=== PATIENT | female | born 1985 | race Caucasian/White ===

== ENCOUNTER 2018-06-28 17:57 | Inpatient (IN) | payer BC ==
[2018-06-28] MEDS ORDERED: Oxytocin/Lactated Ringers 10 UNIT/1,000 ML BAG IV SCH (18:15)
[2018-06-28] MEDS ORDERED: Nalbuphine 20 MG/ML 1 ML Syringe IVPUSH PRN (18:15)
[2018-06-28] MEDS ORDERED: Ondansetron 4 MG/2 ML SDV IVPUSH PRN (18:15)
[2018-06-28] MEDS ORDERED: Sodium Chloride 0.9% 10 ML Syringe FLUSH PRN (18:15)
[2018-06-28] MEDS ORDERED: Ampicillin 2 GM in Sodium Chloride 0.9% 100 ML IV ONE (18:30)
[2018-06-28] MEDS: Lactated Ringers 1,000 ML IV SCH ×3 (18:31→19:53)
[2018-06-28] MEDS ORDERED: fentaNYL 100 MCG/2 ML SDV EPIDUR PRN (19:14)
[2018-06-28] MEDS ORDERED: ePHEDrine 50 MG/ML SDV IVPUSH PRN (19:14)
[2018-06-28] MEDS ORDERED: diphenhydrAMINE 50 MG/ML SDV IVPUSH PRN (19:14)
[2018-06-28] MEDS ORDERED: Bupivacaine/fentaNYL/NS 100 ML Bag EPIDUR SCH (19:15)
--- NOTE | 2018-06-28 19:36 | PCM.LDHP ---
L&D History of Present Illness - General Date of Service: 06/28/18 Admit Problem/Dx: Patient Status Order with Admit Dx/Problem 06/28/18 18:15 Patient Status [ADT] Routine Admission Diagnosis/Problem Admission Diagnosis/Problem Source of Information: Patient History Limitations: Reports: No Limitations - History of Present Illness Introduction:: Sapna Torres is a 33-year-old 012 at 40 weeks 2 days by LMP consistent with 9 week ultrasound (EDC 06/26/2018 end (who presents for spontaneous labor. She reports around 3:30 to 4:00 this afternoon she started to have regular painful contractions that were about 5-6 minutes apart. She reports that they're getting very strong and having to breathe through them. She denies any leaking of fluid or vaginal bleeding. Reports good movement. Timing/Duration: Reports: gradual onset, intermittent (5-6 minutes), getting worse Location, : Reports: Abdomen, Lower back, Pelvic, Uterus Quality: Reports: Pressure, Throbbing Severity: Severe Improves with: Reports: None Worsens with: Reports: None Associated Symptoms: Denies: vaginal bleeding, vaginal discharge, vaginal fluid Present Illness Comments:: Sapna Torres is a 33-year-old 012 at 40 weeks 2 days by LMP consistent with 9 week ultrasound (EDC 06/26/2018) who presents in spontaneous labor. She has had routine care with myself starting at 9 weeks gestational age. She received flu shot on 02/19/2018. She received TDaP on 04/16/2018. labs Blood type: O+ Antibody screen: Negative First trimester hematocrit/hemoglobin: 38.3%/13.7 on 01/08/2018 Platelets: 213 on 01/08/2018 Urine culture: Mixed amy suggestive contamination Rubella status: Immune Hepatitis B surface antigen: [Negative] RPR: [Negative] HIV: [Negative] Gonorrhea: [Negative] Chlamydia: [Negative] Anatomy ultrasound: Normal anatomy ultrasound without abnormalities. Posterior placenta, no previa. 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 1 oz., delivery at 40 weeks' gestational age G2: 09/29/2014 spontaneous at early gestational age G3: 08/09/2015, , male, 8 lbs. 3 oz., delivery at 40 weeks' gestational age G4: Current - Related Data Allergies/Adverse Reactions: Allergies Allergy/AdvReac Type Severity Reaction Status Date / Time No Known Allergies Allergy Verified 06/28/18 18:08 Home Medications: Home Meds Vits #93/Iron Fum/FA [ Formula Tablet] 06/28/18 [History] Past Medical History HEENT History: Reports: Other (See Below) Other HEENT History: wears glasses/contacts Genitourinary History: Reports: Other (See Below) Other Genitourinary History: history of abnormal pap 2008 LEADITE MAN History: Reports: , Spontaneous : 4 Para: 2 - Past Surgical History HEENT Surgical History: Reports: Oral Surgery Social & Family History - Tobacco Use Smoking Status *Q: Never Smoker - Tobacco Core Measures Tobacco Use/Smoking Within Last 30 Days: No Smokeless Tobacco Use in Last 30 Days: No - Alcohol Use Alcohol Use History: No - Recreational Drug Use Recreational Drug Use: No - Living Situation & Occupation Living situation: Reports: , with Spouse H&P Review of Systems - Review of Systems: Review Of Systems: See Below General: Denies: Fever, Chills, Malaise, Weakness, Fatigue HEENT: Reports: Glasses. Denies: Headaches, Rhinitis, Post Nasal Drip, Sinus Congestion, Sore Throat, Visual Changes Pulmonary: Denies: Shortness of Breath, Wheezing, Pleuritic Chest Pain Cardiovascular: Denies: Chest Pain, Palpitations, Dyspnea on Exertion Gastrointestinal: Denies: Abdominal Pain, Constipation, Diarrhea, Nausea, Vomiting Genitourinary: Denies: Dysuria, Frequency, Burning, Pain, Urgency Musculoskeletal: Reports: Back Pain (And hip pain) Skin: Denies: Rash, Lesions Psychiatric: Denies: Depression, Anxiety Hematologic/Lymphatic: Denies: Anemia, Easy Bleeding, Easy Bruising L&D Exam - Exam Exam: See Below - Vital Signs Vital Signs: Last Vital Signs Temp 36.3 C 06/28/18 18:07 Pulse 68 06/28/18 18:07 Resp 18 06/28/18 18:07 BP 125/72 06/28/18 18:07 Pulse Ox Weight: 102.194 kg - OB Specific Contraction Duration (sec): 60-90 Contraction Frequency (min): 2-5 Contraction Intensity: Strong Movement: Active Heart Tones: Present Heart Tones per Min: 130 (+15 x 15 accelerations, occasional variable decelerations) Heart Rate (FHR) Variability: Moderate (6-25 bmp) Presentation: Vertex Estimated Weight: 7.5-8 pounds by Riley's - Rose Score Rose Score Cervix Position: Anterior Rose Score Consistency: Soft Rose Score Effacement: >80% (90%) Rose Score Dilation: 3-4 cm (4 cm) Rose Score 's Station: -2 Rose Score Total: 10 - Exam General: Alert, Oriented HEENT: Conjunctiva Clear, EOMI Neck: Supple, Trachea Midline Lungs: Clear to Auscultation, Normal Respiratory Effort Cardiovascular: Regular Rate, Regular Rhythm GI/Abdominal Exam: Soft, Non-Tender, No Distention. No: Guarding, Rigid, Rebound Genitourinary: Normal external exam Back Exam: Normal Inspection Extremities: Normal Inspection, No Pedal Edema Skin: Warm, Dry, Intact Psychiatric: Alert, Normal Affect, Normal Mood - Patient Data Lab Results Last 24 hrs: Laboratory Results - last 24 hr 06/28/18 Range/Units 18:39 WBC 13.14 H (3.98-10.04) K/mm3 RBC 4.29 (3.98-5.22) M/mm3 Hgb 13.2 (11.2-15.7) gm/L Hct 38.0 (34.1-44.9) % MCV 88.6 (79.4-94.8) fl MCH 30.8 (25.6-32.2) pg MCHC 34.7 (32.2-35.5) g/dl RDW Std Deviation 41.0 (36.4-46.3) fL Plt Count 172 L (182-369) K/mm3 MPV 9.4 (9.4-12.3) fl Neut % (Auto) 76.5 H (34.0-71.1) % Lymph % (Auto) 13.2 L (19.3-51.7) % [place] % (Auto) 7.6 (4.7-12.5) % Eos % (Auto) 1.8 (0.7-5.8) Baso % (Auto) 0.2 (0.1-1.2) % Neut # (Auto) 10.06 H (1.56-6.13) K/mm3 Lymph # (Auto) 1.73 (1.18-3.74) K/mm3 Davis # (Auto) 1.00 H (0.24-0.36) K/mm3 Eos # (Auto) 0.23 (0.04-0.36) K/mm3 Baso # (Auto) 0.03 (0.01-0.08) K/mm3 Result Diagrams: 06/28/18 18:39 - Problem List (1) 40 weeks gestation of SNOMED Code(s): 82819326 ICD Code: Z3A.40 - 40 WEEKS GESTATION OF Status: Acute Current Visit: Yes (2) GBS (group B Streptococcus carrier), +RV culture, currently SNOMED Code(s): 5862514927908, 347970944, 2314399554799 ICD Code: O99.820 - STREPTOCOCCUS B CARRIER STATE COMPLICATING Status: Acute Current Visit: Yes Problem List Initiated/Reviewed/Updated: Yes Orders Last 24hrs: Active Orders 24 hr Category Date Time Status Patient Status [ADT] Routine ADT 06/28/18 18:15 Active Activity as Tolerated [RC] PFP Care 06/28/18 18:15 Active Communication Order [RC] ASDIRECTED Care 06/28/18 18:15 Active Heart Tones [RC] ASDIRECTED Care 06/28/18 18:16 Active Non Stress Test [RC] PER UNIT ROUTINE Care 06/28/18 18:15 Active Notify Provider [RC] ASDIRECTED Care 06/28/18 19:14 Active Notify Provider [RC] PFP Care 06/28/18 18:15 Active Notify Provider [RC] PRN Care 06/28/18 18:15 Active Peripheral IV Care [RC] . DIRECTED Care 06/28/18 18:16 Active Vital Signs [RC] PER UNIT ROUTINE Care 06/28/18 18:15 Active RAPID PLASMA REAGIN,RPR [CHEM] Routine Lab 06/28/18 18:15 Ordered Ampicillin 1 gm Med 06/28/18 22:30 Active Sodium Chloride 0.9% [Normal Saline] 100 ml IV Q4H Bupivacaine/fentaNYL/NS [fentaNYL/Bupivacaine/NS 2 MCG- Med 06/28/18 19:15 Ordered 0.125% 100 ML] 100 ml EPIDUR ASDIRECTED Lactated Ringers [Ringers, Lactated] 1,000 ml Med 06/28/18 18:15 Active IV ASDIRECTED Nalbuphine [Nubain] Med 06/28/18 18:15 Active 10 mg IVPUSH Q2H PRN Ondansetron [Zofran] Med 06/28/18 18:15 Active 4 mg IVPUSH Q4H PRN Oxytocin/Lactated Ringers [Pitocin in LR 10 Units/1,000 Med 06/28/18 18:15 Active ML] 10 unit in 1,000 ml IV .CONTINUOUS Sodium Chloride 0.9% [Saline Flush] Med 06/28/18 18:15 Active 10 ml FLUSH ASDIRECTED PRN diphenhydrAMINE [Benadryl] Med 06/28/18 19:14 Ordered 25 mg IVPUSH Q6H PRN ePHEDrine [ePHEDrine sulfate] Med 06/28/18 19:14 Ordered 5 mg IVPUSH ASDIRECTED PRN fentaNYL [Sublimaze] Med 06/28/18 19:14 Ordered 100 mcg EPIDUR Q3H PRN Electronic Heart Tones Ext w TOCO [WOMSER] Oth 06/28/18 18:15 Ordered Routine Electronic Heart Tones Internal [WOMSER] Per Unit Oth 06/28/18 18:15 Ordered Routine Peripheral IV Insertion Adult [OM.PC] Routine Oth 06/28/18 18:15 Ordered Resuscitation Status Routine Resus Stat 06/28/18 18:15 Ordered Medication Orders Diphenhydramine HCl (Benadryl) 25 mg IVPUSH Q6H PRN PRN Reason: pruritis Ephedrine Sulfate (Ephedrine Sulfate) 5 mg IVPUSH ASDIRECTED PRN PRN Reason: Hypotension Fentanyl (Sublimaze) 100 mcg EPIDUR Q3H PRN PRN Reason: Pain Fentanyl/Bupivacaine HCl (Fentanyl/Bupivacaine/Ns 2 Mcg-0.125% 100 Ml) 100 ml EPIDUR ASDIRECTED [facility]SEIN Ampicillin Sodium 1 gm/ Sodium (Chloride) 100 mls @ 200 mls/hr IV Q4H [facility] Lactated Ringer's (Ringers, Lactated) 1,000 mls @ 100 mls/hr IV ASDIRECTED HUSSEIN Last Admin: 06/28/18 19:15 Dose: 999 mls/hr Infusion: 06/28/18 19:15 Dose: 100 mls/hr Admin: 06/28/18 18:31 Dose: 100 mls/hr Oxytocin/Lactated Ringer's (Pitocin In Lr 10 Units/1,000 Ml) 10 unit in 1,000 mls @ 500 mls/hr IV .CONTINUOUS [facility]USSEIN Nalbuphine HCl (Nubain) 10 mg IVPUSH Q2H PRN PRN Reason: pain Ondansetron HCl (Zofran) 4 mg IVPUSH Q4H PRN PRN Reason: Nausea/Vomiting Sodium Chloride (Saline Flush) 10 ml FLUSH ASDIRECTED PRN PRN Reason: Keep Vein Open Assessment/Plan Comment:: Refer to observation for spontaneous labor with cervical change from 3.5 cm yesterday to 4 cm today Continuous monitoring Place IV and have Lactated Ringer's at 125 ml/hr May have small amounts of regular diet Activity as tolerated May have epidural as desired Plans to breast-feed after delivery Start on ampicillin 2 g now and have 1 g every 4 hours after for GBS prophylaxis Plan for artificial rupture membranes 4 hours after first dose of antibiotic Anticipate vaginal delivery unless otherwise indicated Momo Kolb M.D. 7:42 PM 06/28/2018
[2018-06-28] MEDS ORDERED: fentaNYL/Bupivacaine-NS 2 MCG/ML-0.125%/PF 100 ML Bag EP SCH (19:37)
--- NOTE | 2018-06-28 19:47 | PCM.PREANE ---
Preanesthetic Assessment - Procedure Proposed Procedure: elizabeth - Anesthesia/Transfusion/Family Hx Anesthesia History: Prior Anesthesia Without Reaction Family History of Anesthesia Reaction: No Transfusion History: No Prior Transfusion(s) - Review of Systems General: No Symptoms Pulmonary: No Symptoms Cardiovascular: No Symptoms Gastrointestinal: No Symptoms, Diarrhea (today) Neurological: No Symptoms - Physical Assessment Respiratory Rate: 18 Vital Signs: Last Vital Signs Temp 97.4 F 06/28/18 18:07 Pulse 68 06/28/18 18:07 Resp 18 06/28/18 18:07 BP 125/72 06/28/18 18:07 Pulse Ox Height: 5 ft 8 in Weight: 102.194 kg ASA Class: 2 Mental Status: Alert & Oriented x3 Airway Class: Mallampati = 1 Dentition: Reports: Normal Dentition Thyro-Mental Finger Breadths: 3 Mouth Opening Finger Breadths: 3 ROM/Head Extension: Full Lungs: Clear to Auscultation, Normal Respiratory Effort Cardiovascular: Regular Rate, Regular Rhythm - Lab Values: Laboratory Last Values WBC 13.14 K/mm3 (3.98-10.04) H 06/28/18 18:39 RBC 4.29 M/mm3 (3.98-5.22) 06/28/18 18:39 Hgb 13.2 gm/L (11.2-15.7) 06/28/18 18:39 Hct 38.0 % (34.1-44.9) 06/28/18 18:39 MCV 88.6 fl (79.4-94.8) 06/28/18 18:39 MCH 30.8 pg (25.6-32.2) 06/28/18 18:39 MCHC 34.7 g/dl (32.2-35.5) 06/28/18 18:39 RDW Std Deviation 41.0 fL (36.4-46.3) 06/28/18 18:39 Plt Count 172 K/mm3 (182-369) L 06/28/18 18:39 MPV 9.4 fl (9.4-12.3) 06/28/18 18:39 Neut % (Auto) 76.5 % (34.0-71.1) H 06/28/18 18:39 Lymph % (Auto) 13.2 % (19.3-51.7) L 02/28/19 18:39 [place] % (Auto) 7.6 % (4.7-12.5) 06/28/18 18:39 Eos % (Auto) 1.8 (0.7-5.8) 06/28/18 18:39 Baso % (Auto) 0.2 % (0.1-1.2) 06/28/18 18:39 Neut # (Auto) 10.06 K/mm3 (1.56-6.13) H 06/28/18 18:39 Lymph # (Auto) 1.73 K/mm3 (1.18-3.74) 06/28/18 18:39 [place] # (Auto) 1.00 K/mm3 (0.24-0.36) H 06/28/18 18:39 Eos # (Auto) 0.23 K/mm3 (0.04-0.36) 06/28/18 18:39 Baso # (Auto) 0.03 K/mm3 (0.01-0.08) 06/28/18 18:39 - Allergies Allergies/Adverse Reactions: Allergies Allergy/AdvReac Type Severity Reaction Status Date / Time No Known Allergies Allergy Verified 06/28/18 18:08 - Blood Blood Available: No - Acknowledgements Anesthesia Type Planned: Epidural Pt an Appropriate Candidate for the Planned Anesthesia: Yes Alternatives and Risks of Anesthesia Discussed w Pt/Guardian: Yes Pt/Guardian Understands and Agrees with Anesthesia Plan: Yes PreAnesthesia Questionnaire HEENT History: Reports: Other (See Below) Other HEENT History: wears glasses/contacts Cardiovascular History: Reports: None Respiratory History: Reports: None Gastrointestinal History: Reports: GERD (with preg) Genitourinary History: Reports: Other (See Below) Other Genitourinary History: history of abnormal pap 2008 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: , Spontaneous : 4 Para: 2 - Past Surgical History HEENT Surgical History: Reports: Oral Surgery Female Surgical History: Reports: Other (See Below) (cyst removed from inside vaginal wall) - SUBSTANCE USE Smoking Status *Q: Never Smoker Tobacco Use Within Last Twelve Months: No Second Hand Smoke Exposure: No Days Per Week of Alcohol Use: 0 Recreational Drug Use History: No - HOME MEDS Home Medications: Home Meds Vits #93/Iron Fum/FA [ Formula Tablet] 02/28/19 [History] - CURRENT (IN HOUSE) MEDS Current Meds: Current Medications Diphenhydramine HCl (Benadryl) 25 mg IVPUSH Q6H PRN PRN Reason: pruritis Ephedrine Sulfate (Ephedrine Sulfate) 5 mg IVPUSH ASDIRECTED PRN PRN Reason: Hypotension Fentanyl (Sublimaze) 100 mcg EPIDUR Q3H PRN PRN Reason: Pain Last Admin: 06/28/18 19:42 Dose: 100 mcg Fentanyl/Bupivacaine HCl (Pgknariv-Kvmig-Vu 2 Mcg/Ml-0.125%) 100 ml EP ASDIRECTED HUSSEIN Last Admin: 06/28/18 19:44 Dose: 100 ml Ampicillin Sodium 1 gm/ Sodium (Chloride) 100 mls @ 200 mls/hr IV Q4H [facility] Lactated Ringer's (Ringers, Lactated) 1,000 mls @ 100 mls/hr IV ASDIRECTED [facility]USSEIN Last Admin: 06/28/18 19:15 Dose: 999 mls/hr Oxytocin/Lactated Ringer's (Pitocin In Lr 10 Units/1,000 Ml) 10 unit in 1,000 mls @ 500 mls/hr IV .CONTINUOUS [facility]USSEIN Nalbuphine HCl (Nubain) 10 mg IVPUSH Q2H PRN PRN Reason: pain Ondansetron HCl (Zofran) 4 mg IVPUSH Q4H PRN PRN Reason: Nausea/Vomiting Sodium Chloride (Saline Flush) 10 ml FLUSH ASDIRECTED PRN PRN Reason: Keep Vein Open Discontinued Medications Fentanyl/Bupivacaine HCl (Fentanyl/Bupivacaine/Ns 2 Mcg-0.125% 100 Ml) 100 ml EPIDUR ASDIRECTED [facility]USSEIN Ampicillin Sodium 2 gm/ Sodium (Chloride) 100 mls @ 200 mls/hr IV ONETIME ONE Stop: 06/28/18 18:59 Last Admin: 06/28/18 18:31 Dose: 200 mls/hr
[2018-06-28] MEDS ORDERED: Bupivacaine 0.25% 10 ML SDV ONE (22:00)
[2018-06-28] MEDS ORDERED: Lidocaine 1.5% with EPINEPHrine 1:200,000 5 ML Amp ONE (22:00)
[2018-06-28] MEDS ORDERED: Ampicillin 1 GM in Sodium Chloride 0.9% 100 ML IV SCH (22:30)
--- NOTE | 2018-06-28 23:22 | PCM.PNLD ---
Labor Progress Note - VS & Meds Vital Signs: Last Vital Signs Temp 36.3 C 06/28/18 18:07 Pulse 68 06/28/18 18:07 Resp 18 06/28/18 19:47 BP 125/72 06/28/18 18:07 Pulse Ox Active Medications: Current Medications Diphenhydramine HCl (Benadryl) 25 mg IVPUSH Q6H PRN PRN Reason: pruritis Ephedrine Sulfate (Ephedrine Sulfate) 5 mg IVPUSH ASDIRECTED PRN PRN Reason: Hypotension Fentanyl (Sublimaze) 100 mcg EPIDUR Q3H PRN PRN Reason: Pain Last Admin: 06/28/18 19:42 Dose: 100 mcg Fentanyl/Bupivacaine HCl (Atmauibd-Amsek-Wb 2 Mcg/Ml-0.125%) 100 ml EP ASDIRECTED HUSSEIN Last Admin: 06/28/18 19:44 Dose: 100 ml Ampicillin Sodium 1 gm/ Sodium (Chloride) 100 mls @ 200 mls/hr IV Q4H [facility] Last Admin: 06/28/18 22:22 Dose: 200 mls/hr Lactated Ringer's (Ringers, Lactated) 1,000 mls @ 100 mls/hr IV ASDIRECTED [facility] Last Admin: 06/28/18 19:53 Dose: 999 mls/hr Oxytocin/Lactated Ringer's (Pitocin In Lr 10 Units/1,000 Ml) 10 unit in 1,000 mls @ 500 mls/hr IV .CONTINUOUS [facility] Nalbuphine HCl (Nubain) 10 mg IVPUSH Q2H PRN PRN Reason: pain Ondansetron HCl (Zofran) 4 mg IVPUSH Q4H PRN PRN Reason: Nausea/Vomiting Last Admin: 06/28/18 22:27 Dose: 4 mg Sodium Chloride (Saline Flush) 10 ml FLUSH ASDIRECTED PRN PRN Reason: Keep Vein Open Discontinued Medications Fentanyl/Bupivacaine HCl (Fentanyl/Bupivacaine/Ns 2 Mcg-0.125% 100 Ml) 100 ml EPIDUR ASDIRECTED [facility] Ampicillin Sodium 2 gm/ Sodium (Chloride) 100 mls @ 200 mls/hr IV ONETIME ONE Stop: 06/28/18 18:59 Last Admin: 06/28/18 18:31 Dose: 200 mls/hr - Uterine Contractions Uterine Monitoring Mode: External Hurt Contraction Frequency (min): 2-5 Contraction Duration (sec): 60-90 Contraction Intensity: Strong - Monitoring Monitor Mode: Doppler/Auscultation Heart Rate (FHR) Baseline: 125 Heart Rate (FHR) Per Doppler: 125 Heart Rate (FHR) Variability: Moderate (6-25 bmp) Accelerations: Present, 15x15 Decelerations: Early, Intermittent (<50% x 20 min) Strip Review: Category I - Vaginal Exam Dilation (cm): 9 Effacement (Percent): 100 Station: 1 Cervical Position: Anterior Sterile Vaginal Exam Performed By: Momo Kolb Vaginal Exam Comment: Artificial rupture of membranes performed with [place] with return of clear fluid. Mother and baby tolerated procedure without difficulty. - Labor Progress (Free Text) Labor Progress: Patient with epidural in place. Good progression at this time with cervical exam of 9/100/+1/soft/anterior Artificial rupture membranes with clear fluid Anticipate vaginal delivery unless otherwise indicated Momo Kobl M.D. 11:22 PM 06/28/2018
--- NOTE | 2018-06-29 00:06 | PCM.DEL ---
L & D Note - General Info Date of Service: 06/28/18 Mother's Due Date: 06/26/18 - Delivery Note Labor: Spontaneous Delivery Outcome: Livebirth Infant Delivery Method: Spontaneous Vaginal Delivery-Single Presentation: Left Occiput Anterior (MISHEL) Nuchal Cord: None Prep: Povidone-Iodine (Betadine Anesthesia Type: Epidural Amniotic Fluid Description: Clear Episiotomy Type: None Laceration: 1st Degree, Labial (bilateral, hemostatic, not repaired) Placenta: Intact, Spontaneous Cord: 3 Vessels Estimated Blood Loss: 150 [place]: Bulb Syringe, Stimulated, Warmed, [place] Used Provider: Momo Kolb Score 1 min: 9 Score 5 min: 9 Delivery Comments (Free Text/Narrative):: Stage I: Sapna Torres was admitted for spontaneous labor. On admission her cervix was dilated to 4 cm. She was GBS positive and was started on ampicillin for GBS prophylaxis. She received a total of 2 doses prior to delivery. She was given an epidural for anesthesia. She had artificial rupture membranes with clear fluid when she was 9 cm dilated. She progressed to complete and pushing. Stage II: On 06/28/2018 she had a normal vaginal delivery of a live male at 2343. Apgars of 9 & 9. Weight of 3950 g (8 lbs 11 oz). Length of 21 inches. There was no nuchal cord. Infant was delivered in MISHEL position. The cord was doubly clamped and cut by father of the . Infant was placed on mother's abdomen. Stage III: She had a spontaneous delivery of an intact placenta in Ed presentation. Three vessel cord. She was given pitocin and fundal massage. She had bilateral first-degree labial lacerations that were hemostatic and not repaired. Mom and baby were stable to recovery. EBL of 150 mL. Momo Kolb MD 12:04 AM 06/29/2018 - General Info Date of Service: 06/29/18 - Patient Data Vitals - Most Recent: Last Vital Signs Temp 36.3 C 06/28/18 18:07 Pulse 68 06/28/18 18:07 Resp 18 06/28/18 19:47 BP 125/72 06/28/18 18:07 Pulse Ox Weight - Most Recent: 102.194 kg I&O - Last 24 Hours: Intake & Output 02/06/28/18 06/29/18 14:59 22:59 06:59 Intake Total 2100 Balance 2100 Lab Results Last 24 Hours: Laboratory Results - last 24 hr 06/28/18 Range/Units 18:39 WBC 13.14 H (3.98-10.04) K/mm3 RBC 4.29 (3.98-5.22) M/mm3 Hgb 13.2 (11.2-15.7) gm/L Hct 38.0 (34.1-44.9) % MCV 88.6 (79.4-94.8) fl MCH 30.8 (25.6-32.2) pg MCHC 34.7 (32.2-35.5) g/dl RDW Std Deviation 41.0 (36.4-46.3) fL Plt Count 172 L (182-369) K/mm3 MPV 9.4 (9.4-12.3) fl Neut % (Auto) 76.5 H (34.0-71.1) % Lymph % (Auto) 13.2 L (19.3-51.7) % [place] % (Auto) 7.6 (4.7-12.5) % Eos % (Auto) 1.8 (0.7-5.8) Baso % (Auto) 0.2 (0.1-1.2) % Neut # (Auto) 10.06 H (1.56-6.13) K/mm3 Lymph # (Auto) 1.73 (1.18-3.74) K/mm3 [place] # (Auto) 1.00 H (0.24-0.36) K/mm3 Eos # (Auto) 0.23 (0.04-0.36) K/mm3 Baso # (Auto) 0.03 (0.01-0.08) K/mm3 Med Orders - Current: Current Medications Diphenhydramine HCl (Benadryl) 25 mg IVPUSH Q6H PRN PRN Reason: pruritis Ephedrine Sulfate (Ephedrine Sulfate) 5 mg IVPUSH ASDIRECTED PRN PRN Reason: Hypotension Fentanyl (Sublimaze) 100 mcg EPIDUR Q3H PRN PRN Reason: Pain Last Admin: 06/28/18 19:42 Dose: 100 mcg Fentanyl/Bupivacaine HCl (Axllffbm-Abkku-Cl 2 Mcg/Ml-0.125%) 100 ml EP ASDIRECTED [facility]USSEIN Last Admin: 06/28/18 19:44 Dose: 100 ml Ampicillin Sodium 1 gm/ Sodium (Chloride) 100 mls @ 200 mls/hr IV Q4H [facility] Last Admin: 06/28/18 22:22 Dose: 200 mls/hr Lactated Ringer's (Ringers, Lactated) 1,000 mls @ 100 mls/hr IV ASDIRECTED [facility] Last Admin: 06/28/18 19:53 Dose: 999 mls/hr Oxytocin/Lactated Ringer's (Pitocin In Lr 10 Units/1,000 Ml) 10 unit in 1,000 mls @ 500 mls/hr IV .CONTINUOUS [facility]USSEIN Last Admin: 06/28/18 23:43 Dose: 500 mls/hr Nalbuphine HCl (Nubain) 10 mg IVPUSH Q2H PRN PRN Reason: pain Ondansetron HCl (Zofran) 4 mg IVPUSH Q4H PRN PRN Reason: Nausea/Vomiting Last Admin: 06/28/18 22:27 Dose: 4 mg Sodium Chloride (Saline Flush) 10 ml FLUSH ASDIRECTED PRN PRN Reason: Keep Vein Open Discontinued Medications Fentanyl/Bupivacaine HCl (Fentanyl/Bupivacaine/Ns 2 Mcg-0.125% 100 Ml) 100 ml EPIDUR ASDIRECTED [facility] Ampicillin Sodium 2 gm/ Sodium (Chloride) 100 mls @ 200 mls/hr IV ONETIME ONE Stop: 06/28/18 18:59 Last Admin: 06/28/18 18:31 Dose: 200 mls/hr - Problem List & Annotations (1) 40 weeks gestation of SNOMED Code(s): 20723185 Code(s): Z3A.40 - 40 WEEKS GESTATION OF Status: Acute Current Visit: Yes (2) GBS (group B Streptococcus carrier), +RV culture, currently SNOMED Code(s): 0395438111040, 597415751, 8956381038302 Code(s): O99.820 - STREPTOCOCCUS B CARRIER STATE COMPLICATING Status: Acute Current Visit: Yes (3) Vaginal delivery SNOMED Code(s): 163900874 Code(s): O80 - ENCOUNTER FOR FULL-TERM UNCOMPLICATED DELIVERY Status: Acute Current Visit: Yes (4) First degree perineal laceration during delivery SNOMED Code(s): 534899859 Code(s): O70.0 - FIRST DEGREE PERINEAL LACERATION DURING DELIVERY Status: Acute Current Visit: Yes - Problem List Review Problem List Initiated/Reviewed/Updated: Yes - My Orders Last 24 Hours: My Active Orders 06/28/18 18:15 Patient Status [ADT] Routine Activity as Tolerated [RC] PFP Communication Order [RC] ASDIRECTED Notify Provider [RC] PFP Notify Provider [RC] PRN Vital Signs [RC] PER UNIT ROUTINE RAPID PLASMA REAGIN,RPR [CHEM] Routine Lactated Ringers [Ringers, Lactated] 1,000 ml IV ASDIRECTED Nalbuphine [Nubain] 10 mg IVPUSH Q2H PRN Ondansetron [Zofran] 4 mg IVPUSH Q4H PRN Oxytocin/Lactated Ringers [Pitocin in LR 10 Units/1,000 ML] 10 unit in 1,000 ml IV .CONTINUOUS Sodium Chloride 0.9% [Saline Flush] 10 ml FLUSH ASDIRECTED PRN Electronic Heart Tones Ext w TOCO [WOMSER] Routine Electronic Heart Tones Internal [WOMSER] Per Unit Routine Peripheral IV Insertion Adult [OM.PC] Routine Resuscitation Status Routine 06/28/18 18:16 Peripheral IV Care [RC] Q2HR 06/28/18 22:30 Ampicillin 1 gm Sodium Chloride 0.9% [Normal Saline] 100 ml IV Q4H - Plan Plan:: Admit to inpatient following normal spontaneous vaginal delivery Continue Pitocin per unit protocol following delivery of placenta and lactated Ringer's until tolerating regular diet Regular diet Vitals per unit routine Ibuprofen and Tylenol for pain control Assist with breast-feeding as needed Continue to monitor lochia Anticipate discharge home on day #2 secondary to late hour of delivery on the day of delivery Momo Kolb MD 12:04 AM 06/29/2018
[2018-06-29] MEDS ORDERED: Witch Hazel Medicated Pads 100/Jar TOP PRN ×2 (01:18→06:55)
[2018-06-29] MEDS ORDERED: Benzocaine/Menthol 20%-0.5% Spray 56 GM Canister TOP PRN ×2 (01:18→06:55)
[2018-06-29] MEDS ORDERED: Ibuprofen 600 MG Tab PO PRN (01:18)
[2018-06-29] MEDS ORDERED: Hydrocortisone Acetate 25 MG Supp RECTAL PRN (06:55)
[2018-06-29] MEDS ORDERED: Lanolin 100% Cream 7 GM Tube TOP PRN (06:55)
[2018-06-29] MEDS ORDERED: Docusate Sodium 100 MG Cap PO PRN (06:55)
[2018-06-29] MEDS ORDERED: Acetaminophen 325 MG Tab PO PRN (06:55)
[2018-06-29] MEDS ORDERED: Oxytocin/Lactated Ringers 10 UNIT/1,000 ML BAG IV SCH (06:55)
--- NOTE | 2018-06-29 07:00 | PCM.SN ---
- Free Text/Narrative Note: Post Progress Note PPD # 1 Subjective: Doing well overall. Ambulating without difficulty. Lochia minimal. Voiding without difficulty. Tolerating regular diet without nausea or vomiting. Pain controlled with oral medications. Breast-feeding with minimal difficulty. Objective: Vitals: Vital Signs - 24 hr 06/28/18 06/28/18 06/28/18 18:06 18:07 18:31 Temperature Temperature [ 36.3 C Temporal] Pulse, 81 77 Peripheral Pulse, 68 Peripheral [ Pulse Oximetry] Respiratory 18 Rate Blood Pressure Blood Pressure 125/72 [Upper Arm] O2 Sat by Pulse Oximetry 06/28/18 06/28/18 06/28/18 19:01 19:32 19:47 Temperature Temperature [ Temporal] Pulse, 83 77 Peripheral Pulse, Peripheral [ Pulse Oximetry] Respiratory 18 Rate Blood Pressure 131/82 Blood Pressure [Upper Arm] O2 Sat by Pulse 100 Oximetry 06/28/18 06/28/18 06/28/18 20:01 20:31 21:00 Temperature Temperature [ Temporal] Pulse, 84 95 78 Peripheral Pulse, Peripheral [ Pulse Oximetry] Respiratory Rate Blood Pressure 107/60 98/66 108/61 Blood Pressure [Upper Arm] O2 Sat by Pulse Oximetry 06/28/18 06/28/18 06/28/18 21:30 22:00 22:31 Temperature Temperature [ Temporal] Pulse, 76 78 71 Peripheral Pulse, Peripheral [ Pulse Oximetry] Respiratory Rate Blood Pressure 112/65 102/85 112/62 Blood Pressure [Upper Arm] O2 Sat by Pulse Oximetry 06/28/18 06/28/18 06/29/18 23:01 23:30 00:01 Temperature Temperature [ Temporal] Pulse, 64 71 93 Peripheral Pulse, Peripheral [ Pulse Oximetry] Respiratory Rate Blood Pressure 115/68 122/63 114/74 Blood Pressure [Upper Arm] O2 Sat by Pulse Oximetry 06/29/18 06/29/18 06/29/18 00:31 01:01 01:30 Temperature Temperature [ Temporal] Pulse, 90 88 83 Peripheral Pulse, Peripheral [ Pulse Oximetry] Respiratory Rate Blood Pressure 107/76 114/56 L 113/67 Blood Pressure [Upper Arm] O2 Sat by Pulse Oximetry 06/29/18 02:22 Temperature 36.9 C Temperature [ Temporal] Pulse, 86 Peripheral Pulse, Peripheral [ Pulse Oximetry] Respiratory 14 Rate Blood Pressure 123/70 Blood Pressure [Upper Arm] O2 Sat by Pulse 98 Oximetry Physical Exam General: Alert and oriented, no acute distress Lungs: Clear to auscultation bilaterally Heart: Regular rate and rhythm Abdomen: Soft, minimal appropriate tenderness, non-distended, fundus midline, nontender, and one finger breadth below the umbilicus Extremities: Trace edema in bilateral lower extremities to mid shins ASSESSMENT: 33-year-old female 013 s/p normal vaginal delivery PPD #1, complicated by GBS positive and received 2 doses prior to delivery PLAN: Doing well Breast-feeding with minimal difficulty. Assist as needed Lochia minimal. Continue to monitor for appropriate lochia. Continue routine care Anticipate discharge home tomorrow Momo Kolb MD 6:59 AM 06/29/2018
[2018-06-29] MEDS: Prenatal Multivitamin with Calcium/Folic Acid/Iron Tab PO SCH ×2 (07:58→09:42)
[2018-06-29] MEDS: Ibuprofen 600 MG Tab PO PRN ×2 (07:58→17:50)
--- NOTE | 2018-06-29 08:02 | PCM48HPAN ---
Post Anesthesia Note - EVALUATION WITHIN 48HRS OF ANESTHETIC Vital Signs in Normal Range: Yes Patient Participated in Evaluation: Yes Respiratory Function Stable: Yes Airway Patent: Yes Cardiovascular Function Stable: Yes Hydration Status Stable: Yes Pain Control Satisfactory: Yes Nausea and Vomiting Control Satisfactory: Yes Mental Status Recovered: Yes - COMMENTS/OBSERVATIONS Free Text/Narrative:: Patient denies any anesthesia complications
[2018-06-30] MEDS: Ibuprofen 600 MG Tab PO PRN (05:25)
[2018-06-30] MEDS: Prenatal Multivitamin with Calcium/Folic Acid/Iron Tab PO SCH (10:24)
--- NOTE | 2018-06-30 10:35 | PCM.DCSUM1 ---
Discharge Summary - Hospital Course Free Text/Narrative:: - General Info Date of Service: 06/28/18 Mother's Due Date: 06/26/18 - Delivery Note Labor: Spontaneous Delivery Outcome: Livebirth Infant Delivery Method: Spontaneous Vaginal Delivery-Single Presentation: Left Occiput Anterior (MISHEL) Nuchal Cord: None Prep: Povidone-Iodine (Betadine Anesthesia Type: Epidural Amniotic Fluid Description: Clear Episiotomy Type: None Laceration: 1st Degree, Labial (bilateral, hemostatic, not repaired) Placenta: Intact, Spontaneous Cord: 3 Vessels Estimated Blood Loss: 150 [place]: Bulb Syringe, Stimulated, Warmed, [place] Used Provider: Momo Kolb Score 1 min: 9 Score 5 min: 9 Delivery Comments (Free Text/Narrative):: Stage I: Sapna Torres was admitted for spontaneous labor. On admission her cervix was dilated to 4 cm. She was GBS positive and was started on ampicillin for GBS prophylaxis. She received a total of 2 doses prior to delivery. She was given an epidural for anesthesia. She had artificial rupture membranes with clear fluid when she was 9 cm dilated. She progressed to complete and pushing. Stage II: On 06/28/2018 she had a normal vaginal delivery of a live male infant at 2343. Apgars of 9 & 9. Weight of 3950 g (8 lbs 11 oz). Length of 21 inches. There was no nuchal cord. Infant was delivered in MISHEL position. The cord was doubly clamped and cut by father of the infant. was placed on mother's abdomen. Stage III: She had a spontaneous delivery of an intact placenta in De presentation. Three vessel cord. She was given pitocin and fundal massage. She had bilateral first-degree labial lacerations that were hemostatic and not repaired. Mom and baby were stable to recovery. EBL of 150 mL. HPI Initial Comments: - General Info Date of Service: 06/28/18 Mother's Due Date: 06/26/18 - Delivery Note Labor: Spontaneous Delivery Outcome: Livebirth Delivery Method: Spontaneous Vaginal Delivery-Single Presentation: Left Occiput Anterior (MISHEL) Nuchal Cord: None Prep: Povidone-Iodine (Betadine Anesthesia Type: Epidural Amniotic Fluid Description: Clear Episiotomy Type: None Laceration: 1st Degree, Labial (bilateral, hemostatic, not repaired) Placenta: Intact, Spontaneous Cord: 3 Vessels Estimated Blood Loss: 150 [place]: Bulb Syringe, Stimulated, Warmed, [place] Used Provider: Momo Kolb Score 1 min: 9 Score 5 min: 9 Delivery Comments (Free Text/Narrative):: Stage I: Sapna Torres was admitted for spontaneous labor. On admission her cervix was dilated to 4 cm. She was GBS positive and was started on ampicillin for GBS prophylaxis. She received a total of 2 doses prior to delivery. She was given an epidural for anesthesia. She had artificial rupture membranes with clear fluid when she was 9 cm dilated. She progressed to complete and pushing. Stage II: On 06/28/2018 she had a normal vaginal delivery of a live male infant at 2343. Apgars of 9 & 9. Weight of 3950 g (8 lbs 11 oz). Length of 21 inches. There was no nuchal cord. was delivered in MISHEL position. The cord was doubly clamped and cut by father of the . Infant was placed on mother's abdomen. Stage III: She had a spontaneous delivery of an intact placenta in Ed presentation. Three vessel cord. She was given pitocin and fundal massage. She had bilateral first-degree labial lacerations that were hemostatic and not repaired. Mom and baby were stable to recovery. EBL of 150 mL. Brief History: - General Info. Date of Service: 06/28/18. Mother's Due Date: 06/26/18. - Delivery Note. Labor: Spontaneous. Delivery Outcome: Livebirth. Infant Delivery Method: Spontaneous Vaginal Delivery-Single. Presentation : Left Occiput Anterior (MISHEL). Nuchal Cord: None. Prep: Povidone-Iodine ( Betadine. Anesthesia Type: Epidural. Amniotic Fluid Description: Clear. Episiotomy Type: None. Laceration: 1st Degree, Labial (bilateral, hemostatic, not repaired). Placenta: Intact, Spontaneous. Cord: 3 Vessels. Estimated Blood Loss: 150. [place]: Bulb Syringe, Stimulated, Warmed, [place] Used. Provider: Momo Kolb. Score 1 min: 9. Score 5 min: 9. Delivery Comments (Free Text/Narrative):: Stage I: Sapna Torres was admitted for spontaneous labor. On admission her cervix was dilated to 4 cm. She was GBS positive and was started on ampicillin for GBS prophylaxis. She received a total of 2 doses prior to delivery. She was given an epidural for anesthesia. She had artificial rupture membranes with clear fluid when she was 9 cm dilated. She progressed to complete and pushing. Stage II: On 06/28/2018 she had a normal vaginal delivery of a live male at 2343. Apgars of 9 & 9. Weight of 3950 g (8 lbs 11 oz). Length of 21 inches. There was no nuchal cord. was delivered in MISHEL position. The cord was doubly clamped and cut by father of the . was placed on mother's abdomen. Stage III: She had a spontaneous delivery of an intact placenta in Ed presentation. Three vessel cord. She was given pitocin and fundal massage. She had bilateral first- degree labial lacerations that were hemostatic and not repaired. Mom and baby were stable to recovery. EBL of 150 mL. Diagnosis: Stroke: No - Discharge Data Discharge Date: 06/30/18 Discharge Disposition: Home, Self-Care 01 Condition: Good - Discharge Diagnosis/Problem(s) (1) 40 weeks gestation of SNOMED Code(s): 99602409 ICD Code: Z3A.40 - 40 WEEKS GESTATION OF Status: Acute Current Visit: Yes (2) GBS (group B Streptococcus carrier), +RV culture, currently SNOMED Code(s): 6722044626746, [id number], 9972147746318 ICD Code: O99.820 - STREPTOCOCCUS B CARRIER STATE COMPLICATING Status: Acute Current Visit: Yes (3) Vaginal delivery SNOMED Code(s): 322853975 ICD Code: O80 - ENCOUNTER FOR FULL-TERM UNCOMPLICATED DELIVERY Status: Acute Current Visit: Yes (4) First degree perineal laceration during delivery SNOMED Code(s): 752168196 ICD Code: O70.0 - FIRST DEGREE PERINEAL LACERATION DURING DELIVERY Status: Acute Current Visit: Yes - Patient Summary/Data Complications: None Consults: None Hospital Course: Sapna Torres was admitted for spontaneous labor. On admission her cervix was dilated to 4 cm. She was GBS positive and was started on ampicillin. She received a total of 2 doses prior to delivery. She was given an epidural for anesthesia. She had artificial rupture of membranes with clear fluid. She progressed to complete and began pushing. On 06/28/2018 she had a normal vaginal delivery of a live male at 2343. Apgars of 9 and 9. Weight of 3950 g (8 lbs. 11 oz.). Her course was uneventful. Her pain was well controlled and she had minimal lochia. She was ambulating, tolerating a regular diet and voiding normally. She was breast-feeding with minimal difficulty. She was afebrile and her hematocrit was 38.0 on admission. She desired to be discharged home on the morning of PPD #2. Her blood type is O+. - Patient Instructions Diet: Regular Diet as Tolerated Activity: Apply Ice, As Tolerated Activity, Other: Nothing in the vagina for 6 weeks Driving: May Drive Today Showering/Bathing: May Shower Notify Provider of: Fever, Increased Pain, Swelling and Redness, Drainage, Nausea and/or Vomiting Other/Special Instructions: Please contact your physician's office if you have heavy vaginal bleeding enough to soak a pad in less than an hour for several hours. Monitor for any signs of an infection in the breasts with severe pain or redness of the breast. - Discharge Plan *PRESCRIPTION DRUG MONITORING PROGRAM REVIEWED*: Not Applicable *COPY OF PRESCRIPTION DRUG MONITORING REPORT IN PATIENT FARRUKH: Not Applicable Home Medications: Home Meds Vits #93/Iron Fum/FA [ Formula Tablet] 1 tab PO DAILY 06/28/18 [History] Acetaminophen [Tylenol] 650 mg PO Q6H PRN tablet 06/30/18 [Rx] Benzocaine/Menthol [Dermoplast Pain Relief [place]] 1 spray TOP ASDIRECTED PRN canister 06/30/18 [Rx] Docusate Sodium [Colace] 100 mg PO BID PRN cap 06/30/18 [Rx] Hydrocortisone Acetate [Anucort-HC] 25 mg RECTAL BID PRN supp 06/30/18 [Rx] Ibuprofen [Motrin] 600 mg PO Q6H PRN tablet 06/30/18 [Rx] Lanolin [Lansinoh HPA] 1 applic TOP ASDIRECTED PRN tube 06/30/18 [Rx] Witch Denise [Tucks] 1 pad TOP ASDIRECTED PRN pad 06/30/18 [Rx] Patient Handouts: Vaginal Delivery, Care After, Care of a Perineal Tear Referrals: Momo Kolb MD [Physician] - (Follow-up in 2-3 weeks for routine visit or earlier as needed.) - Discharge Summary/Plan Comment DC Time >30 min.: No - Patient Data Vitals - Most Recent: Last Vital Signs Temp 36.8 C 06/30/18 08:34 Pulse 87 06/30/18 08:34 Resp 15 06/30/18 08:34 BP 117/70 06/30/18 08:34 Pulse Ox 97 06/30/18 08:34 Weight - Most Recent: 102.194 kg Lab Results - Last 24 hrs: Laboratory Results - last 24 hr 06/28/18 Range/Units 18:15 RPR Non-reactive (NONREACTIVE) Med Orders - Current: Current Medications Acetaminophen (Tylenol) 650 mg PO Q6H PRN PRN Reason: mild pain or fever Last Admin: 06/29/18 22:39 Dose: 650 mg Benzocaine/Menthol (Dermoplast Pain Relief [place]) 0 gm TOP ASDIRECTED PRN PRN Reason: Perineal Comfort Measure Docusate Sodium (Colace) 100 mg PO BID PRN PRN Reason: Constipation Emollient Ointment (Lansinoh Hpa) 0 gm TOP ASDIRECTED PRN PRN Reason: Sore Nipples Hydrocortisone Acetate (Anucort-Hc) 25 mg RECTAL BID PRN PRN Reason: Hemorrhoid pain Oxytocin/Lactated Ringer's (Pitocin In Lr 10 Units/1,000 Ml) 10 unit in 1,000 mls @ 100 mls/hr IV TITRATE HUSSEIN; Protocol Ibuprofen (Motrin) 600 mg PO Q6H PRN PRN Reason: Mild pain or fever Last Admin: 06/30/18 05:25 Dose: 600 mg Prenat Multivit/Bug Tussle/Iron/Folic Ac ( Plus Iron) 1 each PO DAILY HUSSEIN Last Admin: 06/30/18 10:24 Dose: 1 each Witch Denise (Tucks) 1 pad TOP ASDIRECTED PRN PRN Reason: Hemorrhoid pain Discontinued Medications Benzocaine/Menthol (Dermoplast Pain Relief [place]) 56 gm TOP ASDIRECTED PRN PRN Reason: perineal discomfort Last Admin: 06/29/18 01:43 Dose: 1 can Bupivacaine HCl (Sensorcaine-Mpf 0.25%) 10 ml .ROUTE .STK-MED ONE Stop: 06/28/18 22:01 Diphenhydramine HCl (Benadryl) 25 mg IVPUSH Q6H PRN PRN Reason: pruritis Ephedrine Sulfate (Ephedrine Sulfate) 5 mg IVPUSH ASDIRECTED PRN PRN Reason: Hypotension Fentanyl (Sublimaze) 100 mcg EPIDUR Q3H PRN PRN Reason: Pain Last Admin: 06/28/18 19:42 Dose: 100 mcg Fentanyl/Bupivacaine HCl (Fentanyl/Bupivacaine/Ns 2 Mcg-0.125% 100 Ml) 100 ml EPIDUR ASDIRECTED HUSSEIN Fentanyl/Bupivacaine HCl (Quzgnvfy-Jfobs-Kt 2 Mcg/Ml-0.125%) 100 ml EP ASDIRECTED HUSSEIN Last Admin: 06/28/18 19:44 Dose: 100 ml Ampicillin Sodium 2 gm/ Sodium (Chloride) 100 mls @ 200 mls/hr IV ONETIME ONE Stop: 06/28/18 18:59 Last Admin: 06/28/18 18:31 Dose: 200 mls/hr Ampicillin Sodium 1 gm/ Sodium (Chloride) 100 mls @ 200 mls/hr IV Q4H [facility] Last Admin: 06/28/18 22:22 Dose: 200 mls/hr Lactated Ringer's (Ringers, Lactated) 1,000 mls @ 100 mls/hr IV ASDIRECTED [facility] Last Admin: 06/28/18 19:53 Dose: 999 mls/hr Oxytocin/Lactated Ringer's (Pitocin In Lr 10 Units/1,000 Ml) 10 unit in 1,000 mls @ 500 mls/hr IV .CONTINUOUS [facility] Last Admin: 06/28/18 23:43 Dose: 500 mls/hr Ibuprofen (Motrin) 600 mg PO Q6H PRN PRN Reason: Pain Last Admin: 06/29/18 01:43 Dose: 600 mg Lidocaine/Epinephrine (Xylocaine-Mpf 1.5% W/Epinephrine 1:200,000) 5 ml .ROUTE .STK-MED ONE Stop: 06/28/18 22:01 Nalbuphine HCl (Nubain) 10 mg IVPUSH Q2H PRN PRN Reason: pain Ondansetron HCl (Zofran) 4 mg IVPUSH Q4H PRN PRN Reason: Nausea/Vomiting Last Admin: 06/28/18 22:27 Dose: 4 mg Sodium Chloride (Saline Flush) 10 ml FLUSH ASDIRECTED PRN PRN Reason: Keep Vein Open Siddhartha Walker (Tucks) 1 pad TOP ASDIRECTED PRN PRN Reason: perineal discomfort Last Admin: 06/29/18 01:43 Dose: 1 container
--- NOTE | 2018-06-30 10:35 | PCM.SN ---
- Free Text/Narrative Note: Post Progress Note PPD # 2 Subjective: Doing well overall. Ambulating without difficulty. Lochia minimal. Voiding without difficulty. Tolerating regular diet without nausea or vomiting. Pain controlled with oral medications. Continues with breast-feeding with minimal difficulty. Objective: Vitals: Vital Signs - 24 hr 06/29/18 06/29/18 06/30/18 15:02 20:01 06:09 Temperature 36.4 C 36.6 C 36.6 C Pulse, 75 84 93 Peripheral Respiratory 14 16 16 Rate Blood Pressure 116/83 119/92 H 122/96 H O2 Sat by Pulse 96 98 98 Oximetry 06/30/18 08:34 Temperature 36.8 C Pulse, 87 Peripheral Respiratory 15 Rate Blood Pressure 117/70 O2 Sat by Pulse 97 Oximetry Physical Exam General: Alert and oriented, no acute distress Lungs: Clear to auscultation bilaterally Heart: Regular rate and rhythm Abdomen: Soft, minimal appropriate tenderness, non-distended, fundus midline, nontender, and two finger breadths below the umbilicus Extremities: Trace edema in bilateral lower extremities to mid shins ASSESSMENT: 33-year-old female 013 s/p normal vaginal delivery PPD #2, complicated by GBS positive and received 2 doses prior to delivery PLAN: Doing well Breast-feeding with minimal difficulty. Assist as needed Lochia minimal. Continue to monitor for appropriate lochia. Continue routine care Discharge home today Momo Kolb MD 11:05 AM 06/30/2018
== END 2018-06-30 14:30 | disposition home or self-care (01) | DRG 560 ==
LOC: JD.OBCHECK 17:57 → JD.OB 18:03 → JD.OBCHECK 18:15 → JD.OB 23:43 → OBSVTOIN 23:43
PROVIDERS: ADMIT Obstetrics & Gynecology; ATTEND Obstetrics & Gynecology
PROC: 10E0XZZ Delivery of Products of Conception, External Approach (ICD-10-PCS; principal; 2018-06-28)
PROC: 10907ZC Drainage of Amniotic Fluid, Therapeutic from Products of Conception, Via Natural or Artificial Opening (ICD-10-PCS; 2018-06-28)
PROC: 00HU33Z Insertion of Infusion Device into Spinal Canal, Percutaneous Approach (ICD-10-PCS; 2018-06-28)
PROC: 3E0R3BZ Introduction of Anesthetic Agent into Spinal Canal, Percutaneous Approach (ICD-10-PCS; 2018-06-28)
DX: O70.0 First degree perineal laceration during delivery (principal); O99.824 Streptococcus B carrier state complicating childbirth; Z3A.40 40 weeks gestation of pregnancy; Z37.0 Single live birth
CPT/HCPCS: 36415; 51702; 59025; 59409; 85025; 86592; A9270-GY; J0290; J2405; J2590; J3010; J3490; J7030; J7120